=== PATIENT | female | born 1955 | race Caucasian/White ===

== ENCOUNTER 2017-10-10 10:39 | Inpatient (IN) ==
[2017-10-10] MEDS ORDERED: PANTOPRAZOLE IV 40 MG VIAL IVP ONE ×2 (11:14→21:18)
[2017-10-10 11:20] LABS: BASOPHILS # (AUTO) 0.01 10*3/UL; BASOPHILS % (AUTO) 0.1 % (0-1); EOSINOPHILS # (AUTO) 0.02 10*3/UL; EOSINOPHILS % (AUTO) 0.2 % (0-8); Hematocrit [HCT] 47.2 % (37.0-47.0); Hemoglobin [HGB] 15.5 g/dL (12.0-16.0); LYMPHOCYTES # (AUTO) 1.34 10*3/uL; MEAN CORPUSCULAR HEMOGLOBIN 29.6 PG (27-31); MEAN CORPUSCULAR HGB CONC 32.8 g/dL (33-37); MEAN CORPUSCULAR VOLUME 90.2 FL (81-99); MEAN PLATELET VOLUME 10.3 FL (7.4-12.2); MONOCYTES # (AUTO) 0.61 10*3/UL (0.3-0.8); MONOCYTES % (AUTO) 4.7 % (5-15); NEUTROPHILS # (AUTO) 10.89 10*3/UL; NEUTROPHILS % (AUTO) 84.4 % (50-80); RED BLOOD COUNT 5.23 10^6/uL (4.20-5.40)
[2017-10-10 11:26] LABS: BLOOD UREA NITROGEN 12 mg/dL (7-22); SERUM ALBUMIN 3.6 g/dL (3.5-4.8)
[2017-10-10 11:44] LABS: LIPASE 24 IU/L (23-300)
[2017-10-10 11:55] LABS: PLATELET MORPHOLOGY COMMENT NORMAL MORPHOLOGY (NORM); RBC MORPHOLOGY COMMENT NORMAL MORPHOLOGY (NORM); WBC MORPHOLOGY COMMENT NORMAL MORPHOLOGY (NORM)
[2017-10-10] MEDS ORDERED: MORPHINE SULFATE 4 MG/1 ML IVP ONE (12:25)
--- NOTE | 2017-10-10 13:49 | PDOC ---
Abdomen/Flank HPI - General Chief Complaint: Abdomen Pain Stated Complaint: ABD PAIN/PASSING BLOOR Date Seen by Provider: 10/10/17 Time Seen by Provider: 11:20 - History of Present Illness Initial Comments: This is a very nice 62-year-old woman who presents to the emergency department with complaints of increasing abdominal cramping and tenderness associated with some maroonish colored bloody bowel movements. She states that she has had colonoscopy in the not too distant past that was all benign she's also had what sounds to be an upper GI series that was benign not too long ago as well. She was in her normal state of health doing well but then started to develop yesterday some nausea and vomiting and then severe abdominal cramping and then today some blood in her stools. She has not had similar symptoms previously. She denies any substantial fever or chills. She is unaware of any sort of concerning exposure. No substantial surgical abdominal history - Patient Home Medications Home Medications: Home Medications Arformoterol Tartrate [Brovana] 15 mcg INH BID #60 vial 12/03/12 Albuterol Sulfate [Proair Hfa] 2 puff INH Q4-6H #1 inhaler 12/19/12 Estrogens, Conjugated [Premarin] 1 unit PO DAILY #90 tab 12/24/12 Fluticasone/Salmeterol [Advair 250-50 Diskus] 1 puff INH BID #1 unit 12/24/12 Metoprolol Tartrate 1 unit PO BID #180 tab 12/24/12 Tiotropium [place] [Spiriva] 1 cap INH QD #1 unit 12/24/12 Bupropion HCl [Bupropion Hcl Sr] 1 unit PO BID #60 tab 05/19/13 Levalbuterol HCl [Xopenex] 0.63 mg INH Q4H PRN 10/16/13 Alendronate Sodium [Fosamax] 70 mg PO WEEKLY 10/29/13 - Patient Allergies Allergies/Adverse Reactions: Allergies 3 Allergy/AdvReac Type Severity Reaction Status Date / Time ibuprofen Allergy Severe NOT Verified 10/10/17 10:56 APPLICABLE meperidine HCl [From Demerol] Allergy Severe unknown, Verified 10/10/17 10:56 couldn't finish procedure 2nd to rxn NSAIDS (Non-Steroidal Allergy Severe Anaphylaxis Verified 10/10/17 10:56 Anti-Inflamma egg Allergy SWELLING Verified 10/10/17 10:56 metal Allergy Severe RASH Uncoded 10/10/17 10:56 Past Medical History - heen HEENT History: Dentures/Partials Cardiovascular History: Arrhythmia, Valvular Heart Disease Respiratory History: Asthma, COPD, Emphysema Gastrointestinal History: GERD Genitourinary History: Denies History Endocrine History: Denies History Musculoskeletal History: Arthritis, Joint Pain Neurological History: Denies History Blood Disorders: Denies History Psychiatric History: Depression, Anxiety Disorders History of Sexually Transmitted Diseases: No Female Reproductive History: Other (please comment) Additional Female Reproductive History: TOTAL HYSTERECTOMY- 1999 LMP: 1999 Obstetrical History: Denies History Cancer History: Denies History In Past Year Been Physically Harmed or Verbally Threatened: No History of MDRO: No History of Other Communicable Diseases: No Tobacco Use: Current Some Day Smoker Alcohol Use: None In the Past 12 Months, Have Used or Abuse Any Substance: None Previous Surgical History: Yes Type / Date of Surgery: TOTAL HYST, CYST R HEEL. JANINA CARPAL TUNNEL, TEETH EXTRACTION. JANINA KNEE SCOPES,TONSILS. BRONCHOSCOPY, TUBAL. NECK SURGERY. RHINOPLASTY Anesthesia Reactions: No Malignant Hyperthermia: No Significant Family History: No pertinent family hx ROS - Limitations ROS Limitations: No Limitations Constitution: REPORTS: Denies Symptoms Cardiovascular: REPORTS: Denies Cardiac Symptoms Respiratory: REPORTS: Denies Resp Symptoms Neurological: REPORTS: Denies Neuro Symptoms Abdominal/Flank Pain PE - General Appearance General Appearance: POSITIVE: Alert, Cooperative, No Acute Distress - HEENT HEENT: POSITIVE: Head Inspection Nml - Neck Neck: POSITIVE: Normal Inspection, No Apparent Injury - Respiratory Respiratory: POSITIVE: No Respiratory Distress - Cardiovascular Cardiovascular: POSITIVE: Regular Rate and Rhythm - Abdomen Additional Abdominal Details: Diffuse abdominal tenderness with some mild guarding bowel tones are normoactive Abdomen Progress - Results Reviewed by me Xrays/CTs/US Reviewed by me: Yes Discussed with Radiologist: Yes Radiology Findings: Colitis consistent with infectious colitis Lab Results Reviewed by Me: Yes CBC and BMP: 10/10/17 10:46 10/10/17 10:45 Lab Results:: Laboratory Results 3 10/10/17 10/10/17 10/10/17 10:45 10:45 10:45 WBC RBC Hgb Hct MCV MCH MCHC RDW Std Deviation RDW Coeff of Jayesh Plt Count MPV Immature Gran % (Auto) Neut % (Auto) Lymph % (Auto) [place] % (Auto) Eos % (Auto) Baso % (Auto) Immature Gran # (Auto) Neut # (Auto) Lymph # (Auto) [place] # (Auto) Eos # (Auto) Baso # (Auto) WBC Morphology Comment Plt Morphology Comment RBC Morph Comment ESR PT 10.4 INR 0.98 Sodium 137 Potassium 3.8 Chloride 102 Carbon Dioxide 30 Anion Gap 5 BUN 12 Creatinine 0.6 Estimated GFR > 60 BUN/Creatinine Ratio 20.00 Glucose 121 H Calculated Osmolality 284.0 Lactic Acid 1.0 Calcium 8.6 L Total Bilirubin 0.6 AST 35 ALT 23 Alkaline Phosphatase 101 C-Reactive Protein Total Protein 6.9 Albumin 3.6 Globulin 3.3 Albumin/Globulin Ratio 1.00 L Amylase 60 Lipase 24 Blood Type Antibody Screen 3 10/10/17 10/10/17 10/10/17 10:45 10:45 10:46 WBC 12.89 H RBC 5.23 Hgb 15.5 Hct 47.2 H MCV 90.2 MCH 29.6 MCHC 32.8 L RDW Std Deviation 48.1 RDW Coeff of Jayesh 14.7 H Plt Count 195 MPV 10.3 Immature Gran % (Auto) 0.2 Neut % (Auto) 84.4 H Lymph % (Auto) 10.4 [place] % (Auto) 4.7 L Eos % (Auto) 0.2 Baso % (Auto) 0.1 Immature Gran # (Auto) 0.02 Neut # (Auto) 10.89 Lymph # (Auto) 1.34 [place] # (Auto) 0.61 Eos # (Auto) 0.02 Baso # (Auto) 0.01 WBC Morphology Comment Normal morphology Plt Morphology Comment Normal morphology RBC Morph Comment Normal morphology ESR 2 PT INR Sodium Potassium Chloride Carbon Dioxide Anion Gap BUN Creatinine Estimated GFR BUN/Creatinine Ratio Glucose Calculated Osmolality Lactic Acid Calcium Total Bilirubin AST ALT Alkaline Phosphatase C-Reactive Protein 2.0 H Total Protein Albumin Globulin Albumin/Globulin Ratio Amylase Lipase Blood Type Antibody Screen 3 10/10/17 11:50 WBC RBC Hgb Hct MCV MCH MCHC RDW Std Deviation RDW Coeff of Jayesh Plt Count MPV Immature Gran % (Auto) Neut % (Auto) Lymph % (Auto) [place] % (Auto) Eos % (Auto) Baso % (Auto) Immature Gran # (Auto) Neut # (Auto) Lymph # (Auto) [place] # (Auto) Eos # (Auto) Baso # (Auto) WBC Morphology Comment Plt Morphology Comment RBC Morph Comment ESR PT INR Sodium Potassium Chloride Carbon Dioxide Anion Gap BUN Creatinine Estimated GFR BUN/Creatinine Ratio Glucose Calculated Osmolality Lactic Acid Calcium Total Bilirubin AST ALT Alkaline Phosphatase C-Reactive Protein Total Protein Albumin Globulin Albumin/Globulin Ratio Amylase Lipase Blood Type A NEGATIVE Antibody Screen Negative - Patient's Progress MDM / ED Course: This patient was evaluated in the emergency department and found to have a elevated white blood cell count. CT scan of the abdomen and pelvis was performed and this shows a infectious type of colitis. Stool studies were ordered patient is given a dose of Zosyn and the hospitalist is contacted. Hospitalist agrees to admit the patient for treatment. Patient Care Time - Estimated PCT Patient Care Time (In Minutes): 40 Vital Signs - Recent Vital Signs Vital Signs: Vital Signs (Last 8 hours) Temp Pulse Resp BP Pulse Ox 10/10/17 11:42 97.2 F 94 24 130/86 88 10/10/17 11:11 97.2 F 94 24 130/62 87 - VS Reviewed Vital Signs Reviewed: Yes Discharge Clinical Impression: Colitis Discharge Disposition: Admit to Inpatient Condition: Fair Follow Up With: NONE,NONE [Primary Care Provider] - Date Decision to Admit to Inpatient: 10/10/17 Time Decision to Admit to Inpatient: 15:00
--- NOTE | 2017-10-10 14:00 | DI ---
XR ABDOMEN ACUTE 2/ABD 1/CXR,10/10/2017 11:22 AM: Clinical History: Abdominal pain. Previous Exam: October 16, 2013 Findings: AP view of the chest is obtained as well as views of the abdomen, and demonstrate no evidence of subd iaphragmatic free air. A nonobstructive bowel gas pattern is seen. There is some air within the dista l colon. No pathologic calcifications are identified. Impression: A nonobstructive, nonspecific bowel gas pattern.
--- NOTE | 2017-10-10 14:45 | DI ---
CT Abdomen/Pelvis W Contrast,10/10/2017 12:18 PM: Clinical History: Abdominal pain, hematochezia and leukocytosis. Previous Exam: None at this facility. Findings: Multiple helically acquired CT images are obtained through the abdomen and pelvis following intraveno us administration of 75 cc of Isovue 300, and demonstrates clear lung bases. The liver appears normal. There are multiple layering stones within the gallbladder. The spleen, pancreas, adrenals and kidneys are normal. There is thickening of the mid transverse colon, across the splenic flexure, and the proximal portion of the descending colon with pericolonic fat stranding and some mild thickening of the peritoneal re flection. There is no mesenteric nor retroperitoneal lymphadenopathy. Urinary bladder is unremarkable. There is no evidence of acute appendicitis. Impression: 1. Thickening and inflammatory changes of the majority of the transverse colon and the descending col on. This is most consistent with infectious colitis. Recommend followup with colonoscopy for further evaluation. 2. Cholelithiasis.
[2017-10-10] MEDS ORDERED: Piperacillin/Tazobactam Inj 3.375 GM in Sodium Chloride 0.9% 100 ML IV ONE (14:53)
--- NOTE | 2017-10-10 15:02 | PDOC ---
HPI - History of Present Illness History of Present Illness: Very nice 63-year-old female with history of COPD on multiple medications lives in [place] during the winter comes to the ER with increasing abdominal cramps which started for this morning but no diarrhea. She had a colonoscopy in the past and upper GI series which were negative but had a starting having some nausea and vomiting yesterday and then the cramping came on she is doing well now on morphine relieved her pain received antibiotics, she is very hungry and would like to eat and would like to stop to clear liquids I told her that we will try this. Past Medical History Medical History: COPD Surgical History: Colonoscopy, upper GI series Tobacco Use: Current Some Day Smoker In the Past 12 Months, Have Used or Abuse Any of the Following Substance: None Medication / Allergies Home Medications: Home Medications 3 Medication Instructions Recorded Confirmed Type Arformoterol Tartrate [Brovana] 15 mcg INH BID #60 vial 12/03/12 10/10/17 History Albuterol Sulfate [Proair Hfa] 2 puff INH Q4-6H #1 inhaler 12/19/12 10/10/17 History Estrogens, Conjugated [Premarin] 1 unit PO DAILY #90 tab 12/24/12 10/10/17 History Tiotropium [place] [Spiriva] 1 cap INH QD #1 unit 12/24/12 10/10/17 History Levalbuterol HCl [Xopenex] 0.63 mg INH Q4H PRN 10/16/13 10/10/17 History Allergies/Adverse Reactions: Allergies 3 Allergy/AdvReac Type Severity Reaction Status Date / Time ibuprofen Allergy Severe NOT Verified 10/10/17 10:56 APPLICABLE meperidine HCl [From Demerol] Allergy Severe unknown, Verified 10/10/17 10:56 couldn't finish procedure 2nd to rxn NSAIDS (Non-Steroidal Allergy Severe Anaphylaxis Verified 10/10/17 10:56 Anti-Inflamma egg Allergy SWELLING Verified 10/10/17 10:56 metal Allergy Severe RASH Uncoded 10/10/17 10:56 Exam - Vitals Vital Signs: Vital Signs Temperature 97.2 F Temperature Source Temporal Artery Scan Pulse Rate [Pulse Oximeter] 94 Respiratory Rate 24 Blood Pressure [Left Arm] 130/86 Pulse Ox 88 Oxygen Delivery Method Room Air Height 6 ft 1 in Weight 182 lb - General General Appearance: No Acute Distress, Cooperative - Head Head Exam: Normal Inspection, Normocephalic, Atraumatic - Eye Eye Exam: POSITIVE: Normal Appearance, PERRL, EOMI, No Scleral Icterus - Respiratory Respiratory Exam: POSITIVE: Clear to Auscultation - Bilaterally, Breathing Non Labored, Normal To Percussion, Normal to Percussion and Palpation - Cardiovascular Cardiovascular Exam: POSITIVE: RRR, No Murmur, No Clicks, No Gallops, No Rubs, PMI Non-Displaced - GI/Abdominal GI/Abdominal Exam: POSITIVE: Normal Bowel Sounds, Non Tender, Non Distended, Soft, No Masses, No Hepatomegaly, No Splenomegaly, No Organomegaly - Extremities Extremities Exam: POSITIVE: Normal Inspection, Full ROM, Normal Capillary Refill , No Clubbing Present, No Edema Present, No Cyanosis Present, Negative Megan's sign, Dosalis Pedis Pulses - Stong & Regular - Neurological Neurological Exam: POSITIVE: Alert, Oriented x 3, Reflexes Normal, Normal Gait, CN II-XII Intact, No Facial Droop, Speech Intact / Clear, Moves All Extremities Equally, No Fasciculations, No Clonus - Psychiatric Psychiatric Exam: POSITIVE: Normal Affect, Normal Mood Results - Labs CBC and BMP: 10/10/17 10:46 10/10/17 10:45 Assessment and Plan - Patient Problems (1) Colitis Current Visit: Yes Status: Acute Comment: invanz IV we'll repeat labs in the morning most likely will need colonoscopy EGD EGD possibly as an outpatient or during the hospital stay if recommended Code(s): K52.9 - Noninfective gastroenteritis and colitis, unspecified (2) Chronic obstructive lung disease Current Visit: No Status: Acute Comment: resume usual meds Code(s): J44.9 - Chronic obstructive pulmonary disease, unspecified
[2017-10-10 15:06] LABS: BILIRUBIN,URINE NEGATIVE (NEG); CLARITY,URINE CLEAR (CLEAR); COLOR,URINE YELLOW; GLUCOSE, URINE (UA) NEGATIVE (NEG); OCCULT BLOOD,URINE MODERATE (NEG); PH,URINE 6.5 (5.0-8.5); PROTEIN,URINE NEGATIVE (NEG); UROBILINOGEN,URINE 0.2 mg/dL (0.2)
[2017-10-10 15:12] LABS: BACTERIA,URINE RARE; SQUAMOUS EPITHELIAL CELL,UR MANY; URINE SAMPLE TYPE VOIDED SPECIMEN
[2017-10-10] MEDS ORDERED: ARFORMOTEROL NEB SOLN 15 MCG/2 ML NEB SCH (15:24)
[2017-10-10] MEDS ORDERED: Metoprolol TARTRATE Tab 25 MG TAB PO SCH (15:24)
[2017-10-10] MEDS ORDERED: FLUTICASONE/SALMETEROL 250/50 UD INHALER INH SCH (15:24)
[2017-10-10] MEDS ORDERED: ALBUTEROL SULFATE 8.5 GM HFA INHALER INH SCH (15:24)
[2017-10-10] MEDS ORDERED: LIDOCAINE W/ SODIUM BICARB 0.5 ML SYR SUBD PRN (15:24)
[2017-10-10] MEDS ORDERED: ALENDRONATE 70 MG TABLET PO SCH (15:24)
[2017-10-10] MEDS ORDERED: LEVALBUTEROL HCL 0.63 MG/3 ML NEB PRN (15:24)
[2017-10-10] MEDS: Sodium Chloride 0.9% 1,000 ML PRIMARY IV SCH (16:29)
[2017-10-10] MEDS: TIOTROPIUM BROMIDE 18 MCG CAPSULE INH SCH (16:56)
[2017-10-10] MEDS ORDERED: ALBUTEROL INH PRN (17:21)
[2017-10-10] MEDS: MORPHINE SULFATE 2 MG/1 ML IVP PRN ×2 (17:59→23:20)
[2017-10-10] MEDS ORDERED: BUDESONIDE 0.5 MG/2 ML NEB SCH (19:00)
[2017-10-10] MEDS: ARFORMOTEROL NEB SOLN 15 MCG/2 ML NEB SCH (19:07)
[2017-10-10] MEDS: Ertapenem Inj 1 GM in Sodium Chloride 0.9% 100 ML IV SCH (20:15)
[2017-10-10] MEDS ORDERED: BUPROPION HCL PO SCH (21:00)
[2017-10-11] MEDS: Sodium Chloride 0.9% 1,000 ML PRIMARY IV SCH ×4 (01:00→23:28)
[2017-10-11] MEDS: MORPHINE SULFATE 2 MG/1 ML IVP PRN ×2 (04:23→09:18)
[2017-10-11 05:23] LABS: BASOPHILS # (AUTO) 0 10*3/UL; BASOPHILS % (AUTO) 0 % (0-1); EOSINOPHILS # (AUTO) 0.22 10*3/UL; EOSINOPHILS % (AUTO) 2.3 % (0-8); Hematocrit [HCT] 41.8 % (37.0-47.0); Hemoglobin [HGB] 12.8 g/dL (12.0-16.0); LYMPHOCYTES # (AUTO) 2.26 10*3/uL; MEAN CORPUSCULAR HEMOGLOBIN 28.4 PG (27-31); MEAN CORPUSCULAR HGB CONC 30.6 g/dL (33-37); MEAN CORPUSCULAR VOLUME 92.9 FL (81-99); MONOCYTES # (AUTO) 0.68 10*3/UL (0.3-0.8); MONOCYTES % (AUTO) 7.2 % (5-15); NEUTROPHILS # (AUTO) 6.23 10*3/UL; NEUTROPHILS % (AUTO) 66.3 % (50-80)
[2017-10-11 05:47] LABS: BLOOD UREA NITROGEN 8 mg/dL (7-22); BUN/CREATININE RATIO 13.33 (6-20)
[2017-10-11 05:49] LABS: PLATELET MORPHOLOGY COMMENT NORMAL MORPHOLOGY (NORM); RBC MORPHOLOGY COMMENT NORMAL MORPHOLOGY (NORM); WBC MORPHOLOGY COMMENT NORMAL MORPHOLOGY (NORM)
[2017-10-11] MEDS: ARFORMOTEROL NEB SOLN 15 MCG/2 ML NEB SCH ×2 (06:17→18:31)
[2017-10-11] MEDS: TIOTROPIUM BROMIDE 18 MCG CAPSULE INH SCH (06:18)
[2017-10-11] MEDS: ESTROGENS,CONJUGATED 0.625 MG TABLET PO SCH (09:18)
--- NOTE | 2017-10-11 10:15 | PDOC(PROG) ---
Date and Time of Service: 10/11/2017 10:10 AM Interval History: Subjective Patient came into the hospital with history of abdominal pain, cramping all over that started bead wrapper at 4 AM yesterday, she said she tried to have a bowel movement and couldn't initially and then she had bowel movement and then there was blood she went multiple times and there was also clots based on Her description. The pain was severe and because of that she came into the ER. Evaluation in the ER revealed that she had inflammatory thickening of the transverse and descending colon. There is also cholelithiasis she was put on antibiotics and admitted. She gave a history of episode of diarrhea maybe once a week with constipation after that, which is going on for about 8 months. There is no bleeding before though according to her. She did have a CT done in [place] and they found gallstones. She said she was referred to a surgeon and she saw him back in May or June of this year and he didn't think that her symptoms are related to gallbladder disease. There is no plan for surgery according to her. Today she said she continued to have the pain and still have rectal bleeding. Morphine does help but the pain is still present. She is on clear liquid diet. She did say that she had a colonoscopy done in 2013 and they found a polyp and they told her that she was to have repeat colonoscopy in 3 years however it was not done yet. Objective : Data - Labs CBC and BMP: 10/11/17 04:55 10/11/17 04:55 Objective : Exam - General General Appearance: No Acute Distress, Cooperative, Obese - Head Head Exam: Normal Inspection - Eye Eye Exam: Normal Appearance - ENT ENT Exam: Normal Exam - Neck Neck Exam: Normal Inspection - Respiratory Additional Respiratory Exam Details: Decreased air entry otherwise no wheezing. - Cardiovascular Cardiovascular Exam: RRR - GI/Abdominal GI/Abdominal Exam: Normal Bowel Sounds, Soft, No Organomegaly Additional GI/Abdominal Exam Details: Abdomen is soft there is diffuse tenderness mostly present on the left lower and mid epigastrium. - Rectal Rectal Exam: Deferred - External Exam: Deferred - Extremities Extremities Exam: Normal Inspection - Back Back Exam: Normal Inspection - Neurological Neurological Exam: Alert, Oriented x 3, CN II-XII Intact, No Facial Droop, Speech Intact / Clear - Psychiatric Psychiatric Exam: Normal Affect - Integumentary Integumentary Exam: Normal Color Assessment and Plan - Patient Problems (1) Colitis Current Visit: Yes Status: Acute Comment: Either infectious or noninfectious. However the fact that this is being going on for 8 months suggests this may be noninfectious. We'll continue with IV antibiotics for now. Continue with clear liquid. Continue with the pain medication. I did speak with the surgeon Dr. Ramirez and he will see her today. Will see his recommendation about colonoscopy. Code(s): K52.9 - Noninfective gastroenteritis and colitis, unspecified (2) Chronic obstructive lung disease Current Visit: No Status: Acute Comment: Continue previous inhalers. Code(s): J44.9 - Chronic obstructive pulmonary disease, unspecified
--- NOTE | 2017-10-11 12:38 | CONSULT ---
Consult Note - Consult Consult Date: 10/11/17 Reason for Consult: PreOp Consulation : General Surgery Requesting Physician: Dr. Asher Primary Care Provider: NONE NONE - History of Present Illness History of Present Illness: The patient is a 62-year-old female who awoke at 4 AM yesterday with severe sharp and cramping abdominal pain and nausea. She reports she sat on the toilet for several hours and finally had some bowel movements. The first one was diarrhea. The second one had some blood and the third one was mostly blood. She has had numerous bloody bowel movements since. She presented to the emergency room. Her white count was slightly elevated at 12,800. It is decreased to normal today. She did get a dose of Invanz. CT scan abdomen and pelvis was done which shows abnormal transverse colon and splenic flexure descending colon and most of her sigmoid colon. It is thickened with pericolonic stranding. There is no gas or stool in that section of the colon. There appears to be adequate blood supply to the colon. It was consistent with infectious or inflammatory colitis and possibly ischemic change. She also has gallstones which she knew about. Her C-reactive protein is elevated. I am asked to see her in consultation. Patient reports she felt well the day prior to the onset of the pain. She has never had anything like this before. She had a colonoscopy in 2013. A small polyp was removed. She was told to have a follow-up in 3 years but that has not yet been done. Patient had stool studies done. C. difficile is normal. No evidence of cryptosporidia or Giardia. Ova and parasites is pending. She does report an 8 month history of diarrhea alternating with constipation. Blood cultures 2 show no growth at 24 hours. Patient has nausea without vomiting. She denies any significant reflux. Review of Systems - Gastrointestinal Gastrointestinal / Abdominal: REPORTS: Diarrhea, Abdominal Pain, Bloody Stool, Poor Appetite, Regurgitation, Bright Red Blood per Rectum, See HPI Past Medical History Medical History: COPD. Gallstones. Personal history of colon polyp. Surgical History: Colonoscopy with polypectomy in 2013. Total abdominal hysterectomy and bilateral salpingo-oophorectomy. Cervical discectomy. Nasal surgery. Bilateral carpal tunnel. Bilateral ulnar nerve surgery. Bilateral knee arthroscopy. Bronchoscopy. Tonsillectomy and adenoidectomy. Tobacco Use: Former Smoker (History of smoking. Quit 2 years ago. Has an occasional cigarette.) In the Past 12 Months, Have Used or Abuse Any of the Following Substance: None Alcohol Use: None Medication / Allergies Home Medications: Home Medications 3 Medication Instructions Recorded Confirmed Type Arformoterol Tartrate [Brovana] 15 mcg INH BID #60 vial 12/03/12 10/10/17 History Albuterol Sulfate [Proair Hfa] 2 puff INH Q4-6H #1 inhaler 12/19/12 10/10/17 History Estrogens, Conjugated [Premarin] 1 unit PO DAILY #90 tab 12/24/12 10/10/17 History Tiotropium [place] [Spiriva] 1 cap INH QD #1 unit 12/24/12 10/10/17 History Levalbuterol HCl [Xopenex] 0.63 mg INH Q4H PRN 10/16/13 10/10/17 History Allergies/Adverse Reactions: Allergies 3 Allergy/AdvReac Type Severity Reaction Status Date / Time ibuprofen Allergy Severe NOT Verified 10/10/17 10:56 APPLICABLE meperidine HCl [From Demerol] Allergy Severe unknown, Verified 10/10/17 10:56 couldn't finish procedure 2nd to rxn NSAIDS (Non-Steroidal Allergy Severe Anaphylaxis Verified 10/10/17 10:56 Anti-Inflamma egg Allergy SWELLING Verified 10/10/17 10:56 metal Allergy Severe RASH Uncoded 10/10/17 10:56 Results - Labs CBC and BMP: 10/11/17 04:55 10/11/17 04:55 - Imaging Status: Image Reviewed by Me (And discussed with the radiologist.), Report Reviewed by Me Exam - Vitals Vital Signs: Vital Signs Temperature 97.7 F Temperature Source Temporal Artery Scan Pulse Rate [Pulse Oximeter] 68 Pulse Rate 78 Respiratory Rate 16 Blood Pressure [Right Arm] 98/53 Blood Pressure [Left Arm] 105/51 Pulse Ox 92 Oxygen Flow Rate 3 Oxygen Delivery Method Nasal Cannula Height 6 ft 1 in Weight 172 lb 6.4 oz - General General Appearance: No Acute Distress, Cooperative - Respiratory Respiratory Exam: POSITIVE: Breathing Non Labored, Decreased Breath Sounds - Cardiovascular Cardiovascular Exam: POSITIVE: RRR, No Murmur - GI/Abdominal GI/Abdominal Exam: POSITIVE: Non Distended, Soft, Diminished Bowel Sounds Additional GI/Abdominal Exam Details: Diffuse abdominal tenderness. Across her central abdomen predominantly. This is where transverse colon lies on CT scan. No signs of peritoneal irritation. - Rectal Rectal Exam: POSITIVE: Deferred (Will do at the time of her colonoscopy.) - Neurological Neurological Exam: POSITIVE: Alert, Oriented x 3 - Psychiatric Psychiatric Exam: POSITIVE: Normal Affect, Normal Mood Assessment and Plan - Patient Problems (1) Colitis Current Visit: Yes Status: Acute Priority: High Onset Date: 10/10/17 Comment: Abnormal colon on CT scan consistent with infectious or inflammatory colitis or ischemic colitis. We will do a bowel prep today and plan colonoscopy tomorrow.The procedure has been discussed with the patient in complete yet simple terms including benefits, risks, and alternatives. All questions have been answered. Informed consent has been obtained. Code(s): K52.9 - Noninfective gastroenteritis and colitis, unspecified (2) BRBPR (bright red blood per rectum) Current Visit: Yes Status: Acute Priority: Medium Onset Date: 10/10/17 Comment: See above. Most consistent with ischemic colitis. Continue hydration as well as antibiotics. Any signs of deterioration will need to rescan or consider exploratory laparotomy. Code(s): K62.5 - Hemorrhage of anus and rectum (3) Generalized abdominal pain Current Visit: Yes Status: Acute Priority: Medium Onset Date: 10/10/17 Comment: See above. Continue to monitor. We'll try to get better pain control. Switched from morphine to Dilaudid. Code(s): R10.84 - Generalized abdominal pain
[2017-10-11] MEDS ORDERED: SUPREP BOWEL PREP KIT PO ONE (13:04)
[2017-10-11] MEDS: HYDROmorphone 2 MG/1 ML IVP PRN ×3 (14:34→20:30)
[2017-10-11] MEDS: Ertapenem Inj 1 GM in Sodium Chloride 0.9% 100 ML IV SCH (19:09)
[2017-10-11] MEDS ORDERED: ONDANSETRON 4 MG/2 ML VIAL IVP PRN (23:00)
[2017-10-11 23:19] LABS: BLOOD UREA NITROGEN 5 mg/dL (7-22); BUN/CREATININE RATIO 6.25 (6-20)
[2017-10-11 23:46] LABS: VENOUS PH 7.31 (7.32-7.42)
--- NOTE | 2017-10-11 23:48 | EKG ---
[address] [id number] Measurements Intervals [place] Rate: 134 P: 51 DE: 175 QRS: 88 QRSD: 90 T: 66 QT: 271 QTc: 350 Interpretive Statements SINUS TACHYCARDIA ABNORMAL RHYTHM ECG Compared to ECG 07/22/2012 09:51:11 Sinus rhythm no longer present Electronically Signed On 10-12-17 07:55:42 MDT by Shane Gregory MD [email or web address]
[2017-10-12] MEDS ORDERED: ACETAMINOPHEN 325 MG TABLET PO ONE (04:36)
[2017-10-12 04:56] LABS: BASOPHILS # (AUTO) 0.02 10*3/UL; BASOPHILS % (AUTO) 0.2 % (0-1); EOSINOPHILS # (AUTO) 0.11 10*3/UL; EOSINOPHILS % (AUTO) 0.9 % (0-8); Hematocrit [HCT] 41.4 % (37.0-47.0); Hemoglobin [HGB] 12.5 g/dL (12.0-16.0); LYMPHOCYTES # (AUTO) 2.19 10*3/uL; MEAN CORPUSCULAR HEMOGLOBIN 28.3 PG (27-31); MEAN CORPUSCULAR HGB CONC 30.2 g/dL (33-37); MEAN CORPUSCULAR VOLUME 93.9 FL (81-99); MEAN PLATELET VOLUME 9.7 FL (7.4-12.2); MONOCYTES # (AUTO) 0.72 10*3/UL (0.3-0.8); MONOCYTES % (AUTO) 5.8 % (5-15); NEUTROPHILS % (AUTO) 75.2 % (50-80); RED BLOOD COUNT 4.41 10^6/uL (4.20-5.40)
[2017-10-12 05:02] LABS: BLOOD UREA NITROGEN 3 mg/dL (7-22); VENOUS PH 7.32 (7.32-7.42)
[2017-10-12 05:06] LABS: PLATELET MORPHOLOGY COMMENT NORMAL MORPHOLOGY (NORM); RBC MORPHOLOGY COMMENT NORMAL MORPHOLOGY (NORM); WBC MORPHOLOGY COMMENT NORMAL MORPHOLOGY (NORM)
[2017-10-12] MEDS: ARFORMOTEROL NEB SOLN 15 MCG/2 ML NEB SCH ×2 (06:18→19:39)
[2017-10-12] MEDS: TIOTROPIUM BROMIDE 18 MCG CAPSULE INH SCH (06:21)
[2017-10-12] MEDS: LEVALBUTEROL HCL 0.63 MG/3 ML NEB SCH ×3 (06:22→19:46)
[2017-10-12] MEDS ORDERED: PROPOFOL 10 MG/1 ML (200 MG/20 ML) VIAL IV ONE (06:49)
[2017-10-12] MEDS: Lactated Ringers 1,000 ML PRIMARY IV SCH ×2 (07:19→10:48)
[2017-10-12] MEDS: Sodium Chloride 0.9% 1,000 ML PRIMARY IV SCH (07:19)
--- NOTE | 2017-10-12 07:29 | PDOC(PROG) ---
Date and Time of Service: 10/12/2017 7:30 AM Interval History: Subjective Patient feels better today compared to last night and to yesterday. Her pain seemed to be less than yesterday and much less than when she came in. She is completely with it today. Last night she said she felt strange and was somewhat confused but today she is with it. No nausea. No more bleeding. She is denying chest pain and no shortness of breath. She appears comfortable. Objective : Data - Labs CBC and BMP: 10/12/17 04:43 10/12/17 04:43 Objective : Exam - General General Appearance: No Acute Distress, Cooperative, Obese - Head Head Exam: Normal Inspection - Eye Eye Exam: Normal Appearance - ENT ENT Exam: Normal Exam - Neck Neck Exam: Normal Inspection - Respiratory Additional Respiratory Exam Details: Decreased air entry otherwise clear - Cardiovascular Cardiovascular Exam: RRR - GI/Abdominal GI/Abdominal Exam: Normal Bowel Sounds, Non Distended, Soft, No Organomegaly Additional GI/Abdominal Exam Details: There is some tenderness in the left lower quadrant but it's much less than yesterday. - Rectal Rectal Exam: Deferred - External Exam: Deferred - Extremities Extremities Exam: Normal Inspection - Back Back Exam: Normal Inspection - Neurological Neurological Exam: Alert, Oriented x 3, CN II-XII Intact, No Facial Droop, Speech Intact / Clear, Moves All Extremities Equally - Psychiatric Psychiatric Exam: Normal Affect - Integumentary Integumentary Exam: Normal Color Assessment and Plan - Patient Problems (1) Colitis Current Visit: Yes Status: Acute Priority: High Onset Date: 10/10/17 Comment: This Is as I said yesterday either infectious or noninfectious. Looks more noninfectious. Inflammatory versus ischemic colitis. She is on IV antibiotics continue. She is scheduled for colonoscopy today. Continue IV fluids for now. Code(s): K52.9 - Noninfective gastroenteritis and colitis, unspecified (2) Chronic obstructive lung disease Current Visit: No Status: Acute Comment: Continue her usual bronchodilators. Her CO2 was elevated last night I did do another repeat this morning its higher but the pH is actually better than last night at 7.32. She is with it. She is denying shortness of breath. She is not tachycardic like last night. I did tell her we will recheck another blood gas before the procedure. if the CO2 and pH stabilize I think she can proceed with the colonoscopy otherwise I told her we'll discuss it with anesthesia and the surgeon if the numbers are worse. She did say that she was told in the past that her carbon dioxide is elevated. We don't have a baseline numbers to compare. Code(s): J44.9 - Chronic obstructive pulmonary disease, unspecified (3) Confusion Current Visit: Yes Status: Acute Comment: Seem to be resolved. Probably medication related. She was put on a Dilaudid and we discontinued that. She is back on the morphine for pain. Code(s): R41.0 - Disorientation, unspecified
[2017-10-12 09:10] LABS: VENOUS PH 7.36 (7.32-7.42)
[2017-10-12] MEDS ORDERED: Lactated Ringers 1,000 ML PRIMARY IV ONE (10:48)
[2017-10-12] MEDS ORDERED: diphenhydrAMINE 50 MG/1 ML VIAL ONE (10:48)
[2017-10-12] MEDS: ESTROGENS,CONJUGATED 0.625 MG TABLET PO SCH (10:49)
--- NOTE | 2017-10-12 11:40 | CRNA.PROGR ---
Anesthesia Time - - Start date: 10/12/17 End date: 10/12/17 - Procedure/Recovery Time Anesthesia : Time In: 10:47 Anesthesia : Time Out: 11:31 Anesthesia : Total Time: 44 - Total Anesthesia Time Total Anesthesia Time (minutes): 44 - Other Weight: 80.694 kg Height: 6 ft 1 in Body Mass Index (BMI): 23.4 Physical Status: P2 (copd) Anesthesia Type: MAC
--- NOTE | 2017-10-12 11:42 | CRNA.PROGR ---
Post Anesthesia Phase II - Post Anesthesia Phase II Patient Stable and Discharged To: Med/Surg Care Assumed By Surgeon: Killian Ramirez MD Temperature: 97.5 F Pulse Rate: 83 Respiratory Rate: 16 Blood Pressure: 122/63 Pulse Ox: 100 Total Nelly Score at Discharge: 9 Post Anesthesia Discharge Criteria Met: Yes
--- NOTE | 2017-10-12 11:45 | GEN.OPNOTE ---
Colonoscopy Procedure Note Surgery Date: 10/12/17 Preoperative Diagnosis: Abdominal pain. Bright red blood per rectum. Possible ischemic colitis. Abnormal CT scan. Postoperative Diagnosis: Same. Probable ischemic colitis. Procedure: complete colonoscopy. Surgeon: Killian Ramirez MD Anesthesia Provider: Ban Peters CRNA Anesthesia Type: MAC Indications: Patient presented to the hospital with abdominal pain and bloody diarrhea. CT scan showed thickening of the mid and distal transverse colon as well as the descending colon. She underwent a bowel prep yesterday and was taken for colonoscopy today. Findings: Prep : [Very good] Cecum : [Normal] Ascending : [Normal] Transverse : [Proximal transverse colon was normal. Colitis changes started in the proximal mid transverse colon. They became more severe in the distal transverse colon and proximal descending colon(pictures were taken and are in the chart).] Sigmoid : [Proximal showed mild colitis. Distally was normal.] Rectum : [The last 20 cm of colon was unremarkable. Rectum was unaffected.] Digital Rectal Exam : [No significant perianal pathology.] A lubricated flexible colonoscope was inserted and passed to the blind end of the cecum. The cecum and ascending colon were normal. The hepatic flexure and proximal transverse colon were normal. In the proximal mid transverse colon colitis changes started. The became more severe throughout the remaining transverse colon, splenic flexure, and descending colon. Biopsies were taken from the transverse colon and the descending colon. The changes started to diminish in the distal sigmoid colon. Biopsies were taken of the sigmoid colon. The last 20 cm of the colon was included the distal sigmoid colon and rectum were unremarkable. The scope was withdrawn completing the procedure. I think the most likely diagnosis is ischemic colitis. This appeared to be mucosal involvement only. The patient's pain has decreased. There are no peritoneal signs. There is no indication for operative intervention at this time. Patient tolerated the procedure well without complication. She was taken to the medical surgical unit in stable condition. I discussed findings with the patient and the hospitalist. The hospitalist will call if her condition deteriorates. We will place her on full liquid diet and saline lock her IV. Would recommend a couple more days of antibiotics and slowly increase her to a low residue or soft mechanical diet. She should be seen in the office in approximately 2 weeks. We will plan follow-up colonoscopy in 3-6 months to check for appropriate healing. Final pathology is pending. Endoscopy Procedures - Endoscopy Procedures Primary Endoscopy Procedure: [id number] : Colonoscopy w/Biopsy
[2017-10-12] MEDS: MORPHINE SULFATE 2 MG/1 ML IVP PRN ×2 (12:24→18:44)
[2017-10-12] MEDS: ACETAMINOPHEN 325 MG TABLET PO PRN (16:18)
[2017-10-12] MEDS ORDERED: MORPHINE SULFATE 2 MG/1 ML ONE (18:42)
[2017-10-12] MEDS: Ertapenem Inj 1 GM in Sodium Chloride 0.9% 100 ML IV SCH (19:35)
[2017-10-13] MEDS: LEVALBUTEROL HCL 0.63 MG/3 ML NEB SCH ×4 (00:33→18:42)
[2017-10-13] MEDS: Lactated Ringers 1,000 ML PRIMARY IV SCH ×2 (00:37→13:06)
[2017-10-13] MEDS: ACETAMINOPHEN 325 MG TABLET PO PRN (00:40)
[2017-10-13] MEDS: MORPHINE SULFATE 2 MG/1 ML IVP PRN (04:21)
[2017-10-13] MEDS: ARFORMOTEROL NEB SOLN 15 MCG/2 ML NEB SCH ×2 (06:22→18:36)
[2017-10-13] MEDS: TIOTROPIUM BROMIDE 18 MCG CAPSULE INH SCH (06:28)
--- NOTE | 2017-10-13 07:17 | PDOC(PROG) ---
Date and Time of Service: 10/13/2017 7:20 AM Interval History: Subjective Patient continued to complain from pain in her abdomen, the pain mainly in the left and mid abdomen and goes to the right side in the middle but mainly in the left side. The pain though is less than what it was yesterday and the previous days. She thinks her pain improving compared to when she came in. No more blood per rectum. She is denying shortness of breath. Objective : Data - Labs CBC and BMP: 10/12/17 04:43 10/12/17 04:43 Objective : Exam - General General Appearance: No Acute Distress, Cooperative, Obese - Head Head Exam: Normal Inspection, Atraumatic - Eye Eye Exam: Normal Appearance - ENT ENT Exam: Normal Exam - Neck Neck Exam: Normal Inspection - Respiratory Additional Respiratory Exam Details: Few expiratory wheezes heard. - Cardiovascular Cardiovascular Exam: RRR - GI/Abdominal GI/Abdominal Exam: Normal Bowel Sounds, Non Distended, Soft, No Organomegaly Additional GI/Abdominal Exam Details: There is some tenderness present in the left lower quadrant. - Rectal Rectal Exam: Deferred - External Exam: Deferred Exam: Deferred - Extremities Extremities Exam: Normal Inspection - Back Back Exam: Normal Inspection - Neurological Neurological Exam: Alert, Oriented x 3, CN II-XII Intact, No Facial Droop, Speech Intact / Clear, Moves All Extremities Equally - Psychiatric Psychiatric Exam: Normal Affect Assessment and Plan - Patient Problems (1) Colitis Current Visit: Yes Status: Acute Priority: High Onset Date: 10/10/17 Comment: Probably ischemic colitis. We'll cut back on her fluids to TKO. We' ll advance her diet to low-residue diet. Continue IV antibiotics over the weekend. Will add oral pain medications. Probably home on Sunday if things continued to stabilize. Code(s): K52.9 - Noninfective gastroenteritis and colitis, unspecified (2) Chronic obstructive lung disease Current Visit: No Status: Acute Comment: Continue previous inhalers. Code(s): J44.9 - Chronic obstructive pulmonary disease, unspecified (3) Confusion Current Visit: Yes Status: Acute Comment: This is resolved. Code(s): R41.0 - Disorientation, unspecified
[2017-10-13] MEDS: HYDROcodone-APAP 5 MG -325 MG TABLET PO PRN ×3 (08:14→18:28)
[2017-10-13] MEDS: ESTROGENS,CONJUGATED 0.625 MG TABLET PO SCH (08:14)
[2017-10-13] MEDS: Ertapenem Inj 1 GM in Sodium Chloride 0.9% 100 ML IV SCH (18:28)
[2017-10-13] MEDS: HYDROcodone-APAP 7.5 MG-325 MG TABLET PO PRN (20:17)
[2017-10-14] MEDS: LEVALBUTEROL HCL 0.63 MG/3 ML NEB SCH ×4 (00:18→19:10)
[2017-10-14 04:39] LABS: BASOPHILS # (AUTO) 0.02 10*3/UL; BASOPHILS % (AUTO) 0.3 % (0-1); EOSINOPHILS # (AUTO) 0.21 10*3/UL; EOSINOPHILS % (AUTO) 2.7 % (0-8); Hematocrit [HCT] 39.3 % (37.0-47.0); Hemoglobin [HGB] 12.1 g/dL (12.0-16.0); LYMPHOCYTES # (AUTO) 2.17 10*3/uL; MEAN CORPUSCULAR HEMOGLOBIN 28.9 PG (27-31); MEAN CORPUSCULAR HGB CONC 30.8 g/dL (33-37); MEAN CORPUSCULAR VOLUME 93.8 FL (81-99); MEAN PLATELET VOLUME 10.1 FL (7.4-12.2); MONOCYTES # (AUTO) 0.59 10*3/UL (0.3-0.8); MONOCYTES % (AUTO) 7.7 % (5-15); NEUTROPHILS # (AUTO) 4.68 10*3/UL; NEUTROPHILS % (AUTO) 60.9 % (50-80); RED BLOOD COUNT 4.19 10^6/uL (4.20-5.40)
[2017-10-14 04:46] LABS: PLATELET MORPHOLOGY COMMENT NORMAL MORPHOLOGY (NORM); RBC MORPHOLOGY COMMENT NORMAL MORPHOLOGY (NORM); WBC MORPHOLOGY COMMENT NORMAL MORPHOLOGY (NORM)
[2017-10-14 04:54] LABS: BLOOD UREA NITROGEN 3 mg/dL (7-22)
[2017-10-14] MEDS: ARFORMOTEROL NEB SOLN 15 MCG/2 ML NEB SCH ×2 (07:11→19:09)
[2017-10-14] MEDS: TIOTROPIUM BROMIDE 18 MCG CAPSULE INH SCH (07:13)
[2017-10-14] MEDS: HYDROcodone-APAP 7.5 MG-325 MG TABLET PO PRN ×3 (07:30→21:10)
--- NOTE | 2017-10-14 07:56 | PDOC(PROG) ---
Date and Time of Service: 10/14/2017 7:54 AM Interval History: Subjective Patient had loose stool this morning and last night she said. No bleeding though. Continue to complain from pain in her abdomen still though less than what it was compared to when she came in. She still requires pain medications. Now she is on oral pain medication and the pain pills seem to help her pain. She is tolerating diet. Objective : Data - Labs CBC and BMP: 10/14/17 04:02 10/14/17 04:02 Objective : Exam - General General Appearance: No Acute Distress, Cooperative - Head Head Exam: Normal Inspection - Eye Eye Exam: Normal Appearance - ENT ENT Exam: Normal Exam - Neck Neck Exam: Normal Inspection - Respiratory Additional Respiratory Exam Details: Decreased air entry no wheezing. - Cardiovascular Cardiovascular Exam: RRR - GI/Abdominal GI/Abdominal Exam: Normal Bowel Sounds, Non Distended, Soft, No Organomegaly Additional GI/Abdominal Exam Details: There is some tenderness is still present in the midabdomen most was the left side. No garden. Abdomen still soft. - Rectal Rectal Exam: Deferred - External Exam: Deferred - Extremities Extremities Exam: Normal Inspection - Back Back Exam: Normal Inspection - Neurological Neurological Exam: Alert, Oriented x 3, CN II-XII Intact, No Facial Droop, Speech Intact / Clear, Moves All Extremities Equally - Integumentary Integumentary Exam: Normal Color Assessment and Plan - Patient Problems (1) Colitis Current Visit: Yes Status: Acute Priority: High Onset Date: 10/10/17 Comment: Probably ischemic colitis. She'll receive another dosage of IV antibiotic and likely home tomorrow. Code(s): K52.9 - Noninfective gastroenteritis and colitis, unspecified (2) Chronic obstructive lung disease Current Visit: No Status: Acute Comment: Continue current treatment. Code(s): J44.9 - Chronic obstructive pulmonary disease, unspecified (3) Confusion Current Visit: Yes Status: Acute Comment: This is resolved. Code(s): R41.0 - Disorientation, unspecified
[2017-10-14] MEDS: POTASSIUM CHLORIDE 20 MEQ TAB PO SCH (10:45)
[2017-10-14] MEDS: ESTROGENS,CONJUGATED 0.625 MG TABLET PO SCH (10:45)
[2017-10-14] MEDS: Ertapenem Inj 1 GM in Sodium Chloride 0.9% 100 ML IV SCH (19:17)
[2017-10-15] MEDS: LEVALBUTEROL HCL 0.63 MG/3 ML NEB SCH ×2 (00:42→06:45)
[2017-10-15] MEDS: HYDROcodone-APAP 7.5 MG-325 MG TABLET PO PRN (01:00)
[2017-10-15 06:27] VITALS: BP 99/40; RESP 18; TEMP 97.4
[2017-10-15] MEDS: TIOTROPIUM BROMIDE 18 MCG CAPSULE INH SCH (06:42)
[2017-10-15] MEDS: ARFORMOTEROL NEB SOLN 15 MCG/2 ML NEB SCH (06:43)
[2017-10-15 06:48] VITALS: O2SAT 92
--- NOTE | 2017-10-15 08:01 | DCSUMMARY ---
Hospitalization Summary Admit Date: 10/10/2017 Discharge Date: 10/15/17 Hospital Course: Discharge diagnoses 1. Colitis probably ischemic, biopsy pending 2. History of COPD 3. Chronic respiratory failure 4. Episode of confusion resolved, probably medication related 5. Cholelithiasis Hospital course This is a 62 years old female with medical history significant for history of COPD who lives in [place] and visiting here who presented to the hospital with history of abdominal pain and diarrhea with rectal bleed. Because of that she came into the ER a CT scan of the abdomen showed colitis of the transverse and the descending colon and cholelithiasis she was started on IV antibiotics, fluids and was admitted. Was admitted by Dr. Joy please see his note. I saw the patient the next day she continued to complain from pain in the abdomen continued to have rectal bleed because of that I spoke with Dr. Ramirez who performed colonoscopy the next day which showed colitis in the transverse and the descending colon biopsies were taken, probably ischemic in nature.. Patient did have an episode of confusion I thought this was related to the medications as she was on Dilaudid and we put her back on morphine. We did also check her venous blood gas and venous blood gas showed hypercapnia I think probably she is a CO2 retainer from baseline, PH initially was decreased but then went back to normal with an elevated CO2 . We kept her in the hospital and gradually advance her diet and continued with IV antibiotics. Things stabilized and the diarrhea resolved and the bleeding stopped. On the day of discharge at pain seemed to be controlled with current pain medication normal bleeding and no diarrhea we thought she could be discharged home her symptoms are controlled with the current pain medications. We'll give her Augmentin orally and she will follow-up with Dr. Ramirez for the biopsies results. We'll try to get her also an appointment with a primary since she is staying in the area here at least till end of October. Discharge instruction Diet regular To test started Medications Current Medication(s) 3 Medication Instructions Recorded Confirmed Type Arformoterol Tartrate [BROVANA] 15 mcg INH BID #60 vial 12/03/12 10/10/17 History Albuterol Sulfate [Proair Hfa] 2 puff INH Q4-6H #1 inhaler 12/19/12 10/10/17 History Estrogens, Conjugated [Premarin] 1 unit PO DAILY #90 tab 12/24/12 10/10/17 History Tiotropium [place] [Spiriva] 1 cap INH QD #1 unit 12/24/12 10/10/17 History Levalbuterol HCl [Xopenex] 0.63 mg INH Q4H PRN 10/16/13 10/10/17 History Amoxicillin/Potassium Clav 1 ea PO BID #4 tab 10/15/17 Rx [Augmentin 875-125 Tablet] HYDROcodone/APAP 7.5/325 Tab 1 - 2 tab PO Q4H PRN #30 tab 10/15/17 Rx [[place] 7.5/325 Tab] Follow-up with the PCP 1-[address] Ramirez in 1-2 weeks Condition at discharge was stable for discharge Exam - Vitals Vital Signs: Vital Signs Temperature 97.4 F Temperature Source Temporal Artery Scan Pulse Rate [Pulse Oximeter] 68 Pulse Rate 64 Respiratory Rate 18 Blood Pressure [Right Arm] 99/40 Blood Pressure [Left Arm] 87/67 Blood Pressure 122/63 Pulse Ox 92 Oxygen Flow Rate 3 Oxygen Delivery Method Nasal Cannula Height 6 ft 1 in Weight 180 lb 8 oz - General General Appearance: No Acute Distress, Cooperative - Head Head Exam: Normal Inspection - Eye Eye Exam: POSITIVE: Normal Appearance - ENT ENT Exam: POSITIVE: Normal Exam - Neck Neck Exam: Normal Inspection - Respiratory Additional Respiratory Exam Details: Decreased air entry. - Cardiovascular Cardiovascular Exam: POSITIVE: RRR - GI/Abdominal GI/Abdominal Exam: POSITIVE: Normal Bowel Sounds, Non Distended, Soft, No Organomegaly Additional GI/Abdominal Exam Details: Abdomen is soft. There is still some tenderness in the left mid abdomen was present before it's less than what it was. - Rectal Rectal Exam: POSITIVE: Deferred - External Exam: POSITIVE: Deferred Exam: POSITIVE: Deferred - Extremities Extremities Exam: POSITIVE: Normal Inspection - Back Back Exam: POSITIVE: Normal Inspection - Neurological Neurological Exam: POSITIVE: Alert, Oriented x 3, CN II-XII Intact, No Facial Droop, Speech Intact / Clear, Moves All Extremities Equally Patient Problems - Patient Problem List (1) Colitis Current Visit: Yes Status: Acute Onset Date: 10/10/17 Priority: High Code(s): K52.9 - Noninfective gastroenteritis and colitis, unspecified Category: Medical (2) Chronic obstructive lung disease Current Visit: No Status: Acute Code(s): J44.9 - Chronic obstructive pulmonary disease, unspecified Category: Medical (3) Confusion Current Visit: Yes Status: Acute Code(s): R41.0 - Disorientation, unspecified Category: Medical
[2017-10-15] MEDS: ESTROGENS,CONJUGATED 0.625 MG TABLET PO SCH (08:30)
[2017-10-15] MEDS: POTASSIUM CHLORIDE 20 MEQ TAB PO SCH (08:30)
--- NOTE | 2017-10-15 09:33 | PDOC(PROG) ---
Date and Time of Service: 10/15/2017 9:20 AM. Interval History: Feeling better. Still having pain. Mostly in the lower abdomen. Tolerating diet but not much appetite. Stools remain loose. No further bright red blood per rectum, for the last several days. Objective : Data - Labs CBC and BMP: 10/14/17 04:02 10/14/17 04:02 - Vital Signs Vital Signs and I&O: Vital Signs - Last Taken Temperature 97.4 F 10/15/17 06:27 Pulse Rate 64 10/15/17 06:46 Respiratory Rate 18 10/15/17 07:29 Blood Pressure 99/40 10/15/17 06:27 Pulse Ox 92 10/15/17 06:46 Intake and Output (24hr x 4 totals) 10/13/17 10/14/17 10/15/17 10/16/17 05:59 05:59 05:59 05:59 Intake Total 5267 / 5267 2370 / 2370 2500 / 2500 200 / 200 Output Total 420 / 420 150 / 150 300 / 300 Balance 4847 / 4847 2220 / 2220 2200 / 2200 200 / 200 Objective : Exam - General General Appearance: No Acute Distress, Cooperative - Respiratory Respiratory Exam: Decreased Breath Sounds - Cardiovascular Cardiovascular Exam: RRR, No Murmur - GI/Abdominal GI/Abdominal Exam: Normal Bowel Sounds, Non Distended, Soft Additional GI/Abdominal Exam Details: Still has some diffuse abdominal tenderness. Less than prior. Predominantly left and mid abdomen. - Neurological Neurological Exam: Alert, Oriented x 3 - Psychiatric Psychiatric Exam: Normal Affect, Normal Mood Assessment and Plan - Patient Problems (1) Colitis Current Visit: Yes Status: Acute Priority: High Onset Date: 10/10/17 Comment: Probably ischemic colitis. Pathology pending. Improving. Reasonable to discharge home with appropriate pain medicines. Antibiotics for several more days have been written. Follow-up in my office in 2 weeks or sooner if problems. Follow-up colonoscopy in 3-6 months. She does live in [place] and she may need to make arrangements to do that when she gets home. Code(s): K52.9 - Noninfective gastroenteritis and colitis, unspecified (2) BRBPR (bright red blood per rectum) Current Visit: Yes Status: Acute Priority: Medium Onset Date: 10/10/17 Comment: Resolved. She above. Code(s): K62.5 - Hemorrhage of anus and rectum (3) Generalized abdominal pain Current Visit: Yes Status: Acute Priority: Medium Onset Date: 10/10/17 Comment: Improved. Code(s): R10.84 - Generalized abdominal pain
== END 2017-10-15 10:30 | disposition home or self-care (01) | DRG 394 ==
LOC: ER 10:39 → MED/SURG 15:33 → OPS 10-12 10:06 → MED/SURG 10-12 11:44
PROVIDERS: ADMIT Internal Medicine; ATTEND Internal Medicine